=== PATIENT | female | born 1940 | race Caucasian/White ===

== ENCOUNTER 2017-01-29 05:47 | Inpatient (IN) | payer MEDICARE, OTHER ==
[2017-01-20 13:00] LABS: HEMATOCRIT 40.1 % (36.0-48.0); HEMOGLOBIN 13.4 g/dL (12.0-16.0)
[2017-01-20 13:03] LABS: ASCORBIC ACID (UR NOT ORDER) NEG (NEG); BILIRUBIN, URINE NEGATIVE (NEG); KETONE, URINE NEGATIVE (NEG)
[2017-01-20 13:09] LABS: CALCIUM, SERUM 9.1 MG/DL (8.5-10.4); CHLORIDE, SERUM 102 MMOL/L (96-112); CO2 (CARBON DIOXIDE) 37 MMOL/L (24-34); GFR AFRICAN AMERICAN 46 ML/MIN (>=60); GFR NON AFRICAN AMERICAN 40 ML/MIN (>=60); SODIUM, SERUM 144 MMOL/L (135-148)
[2017-01-20 13:10] LABS: BUN (BLOOD UREA NITROGEN) 20 MG/DL (6-23); GLUCOSE, SERUM 117 MG/DL (60-99)
--- NOTE | ~2017-01-29 | DS ---
Discharge Summary [facility] [address] [place] [place]. [address] NAME: NILS FINCH APRIL : 40 STATUS : DIS IN PAT#: [id number] AGE: 76 ADM/REG DATE : 01/29/17 MR#: [id number] REPORT SERV DATE: 02/08/17 DICTATED BY: ANNA MURPHY DATE: 02/08/17 REPORT STATUS : Draft TRANSCRIBED BY: MODGlen DATE: 02/08/17 Data Collection from hospitalization DISCHARGE DIAGNOSES: 1. Right renal mass. 2. Hypertension. 3. Cardiomyopathy. 4. Chronic systolic heart failure. 5. History of atrial flutter. 6. Hyperlipidemia. 7. Hypothyroidism. 8. Murmur. 9. Orthostatic hypotension. 10.History of premature atrial contractions. 11.Rheumatoid arthritis. 12.Valvular heart disease. CONSULTATIONS: None. PROCEDURES PERFORMED: Right robotic-assisted laparoscopic partial nephrectomy and intraoperative ultrasound of the right kidney on 01/29/2017. PATHOLOGY: Kidney, base of tumor biopsy - no tumor seen. Right kidney partial nephrectomy - benign cortical cyst (1.2 cm), no carcinoma seen. MEDICATIONS: Aspirin 81 mg every morning, Caltrate 600 mg every morning, Coreg 25 mg twice a day, vitamin B12 1000 mcg sublingually daily, Colace 100 mg twice a day, Lasix 40 mg twice a day, levothyroxine 50 mcg every morning, Cozaar 50 mg every morning, Mag-Ox 400 mg twice a day, Nitrostat 0.4 mg sublingually as needed, Protonix 40 mg twice a day, potassium chloride SR 20 mEq twice a day, prednisone 2.5 mg every morning, and Ultram 50 mg twice a day as needed. CONDITION AT DISCHARGE: Stable. DISPOSITION: The patient was discharged home on a soft diet with activities as instructed. She would follow up with me on 02/15/2017. HOSPITAL COURSE: This is a 76-year-old female who has a 1.5 cm right upper pole renal mass. She was given options including surveillance, ablation, and partial nephrectomy. She has a history of a partial nephrectomy on the left side. Treatment options were discussed and it was elected to proceed with surgical intervention. She was admitted to the hospital at this time for further evaluation and treatment. Upon admission, she was taken to the operating room where she underwent the above-mentioned procedure. She tolerated this well, and there were no complications. The following day, she was in no acute distress. Her abdomen was soft. We advanced her diet. She was encouraged to ambulate. The Thornton catheter was going to be removed. On 01/31/2017, she did complain of having a cough. Her T-max was 102.6. Discharge planning was performed. On Discharge Summary [address] [place]. [address] NAME: NILS FINCH APRIL : 40 STATUS : DIS IN PAT#: [id number] AGE: 76 ADM/REG DATE : 01/29/17 MR#: [id number] REPORT SERV DATE: 02/08/17 DICTATED BY: ANNA MURPHY DATE: 02/08/17 REPORT STATUS : Draft TRANSCRIBED BY: KHUSHI DATE: 02/08/17 02/01/2017, she continued to do well. Her abdomen remained soft. Cultures were negative. She did have a bowel movement. Discharge instructions were given. Due to her improved and stable condition, she was discharged home with the above-stated instructions. Information collected by: Stefany Cummings I submit the above information as my discharge summary. RJ/KHUSHI Anna Murphy MD / [id number] CC: MD Barak Hernandez M.D.
--- NOTE | ~2017-01-29 | OP ---
Record Of Operation [facility] [address] [place] [place]. [address] NAME: NILS RAI APRIL : 40 STATUS : ADM IN PAT#: [id number] AGE: 76 ADM/REG DATE : 01/29/17 MR#: [id number] REPORT SERV DATE: 01/30/17 DICTATED BY: ANNA MURPHY DATE: 01/30/17 REPORT STATUS : Draft TRANSCRIBED BY: MODL DATE: 01/30/17 DATE OF PROCEDURE: 01/29/2017 SURGEON: Anna Murphy MD. TITLE OF OPERATION: 1. Right robotic-assisted laparoscopic partial nephrectomy. 2. Intraoperative ultrasound of right kidney. PREOPERATIVE DIAGNOSIS: Right renal mass. POSTOPERATIVE DIAGNOSIS: Right renal mass. INDICATIONS: Ms. Rai is a 76-year-old female, with a 1.5 cm right upper pole renal mass. She was given options including surveillance, ablation, and partial nephrectomy. She has a history of a partial nephrectomy on the left side. She is here for right partial nephrectomy. ANESTHESIA: General. COMPLICATIONS: None. IMPLANTS: A 16-[place] Thornton catheter. SPECIMEN: Right renal mass. NARRATIVE: The patient was brought to the operating room, identified by her wristband. General anesthesia was induced and Ancef was given for preoperative antibiotics. She was placed in the modified left flank position and prepped and draped in sterile fashion. She was secured to the bed with pads and tape. Before being prepped and draped, a 16-[place] Thornton catheter was placed into her bladder. The balloon was inflated with 10 mL of sterile water. Her abdomen was entered with a 5 mm port under direct vision. There was no significant adhesions given her prior surgeries. Standard X-Y port placement was performed with four 8 mm ports on the right side of the body. A 5 mm port was placed in a subxiphoid position for liver retractor. A 12 mm port was placed in the upper midline for a second multimedia production assistant port. A locking grasper was placed through the 5 mm port and the liver was retracted cephalad. The robot was docked. The operation was begun by dropping the colon along the white line of Toldt exposing retroperitoneum. This was dropped medially to expose the duodenal. The duodenum was sharply Kocherized, the IVC was identified. The gonadal vein was identified and reflected onto the IVC. The ureter was lifted up off the psoas muscle as was the lower pole of the kidney. Care was taken to reflect the psoas fascia inferiorly onto the psoas muscle. The hilum was then approached, and all fibrofatty tissue was dissected free, and taken with cautery. There was single renal artery and vein. However, the artery branched behind the IVC and I could not clamp the artery at its base. Therefore, the two main branches were identified, one beneath, and one above the renal vein. The kidney was then dropped back to its normal position. The kidney was defatted. The Record Of Operation [facility] [address] [place]. [address] NAME: NILS RAI APRIL : 40 STATUS : ADM IN PAT#: [id number] AGE: 76 ADM/REG DATE : 01/29/17 MR#: [id number] REPORT SERV DATE: 01/30/17 DICTATED BY: ANNA MURPHY DATE: 01/30/17 REPORT STATUS : Draft TRANSCRIBED BY: KHUSHI DATE: 01/30/17 tumor was identified in the upper pole of the kidney. It was cystic in nature. Intraoperative ultrasound was performed of the right kidney. The tumor was precisely identified using the ultrasound. Images were taken and placed in the chart. Next, the renal artery was clamped with a bulldog, one clamp was placed on the artery beneath the vein, and one was placed above the vein to ensure adequate ischemia. 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 It was placed into an EndoCatch bag. The base of the tumor was oversewn with a 3-0 V-Loc suture. A single 2-0 Vicryl suture was placed to close renorrhaphy, a sliding Weck technique was used. The bulldog clamps were then removed. There was no ongoing bleeding. Ischemic time was less than 10 minutes. The tumor in the bag were then removed. The bulldog clamps were removed. All sutures were sequentially removed. There was still no ongoing bleeding. A Surgicel dressing was placed over the renorrhaphy. The fat was reapproximated over the kidney. The robot was then removed. No drain was left. The fascia from the multimedia production assistant port was closed with a 0 Vicryl suture using Tomer-Russell device. The wounds were irrigated clear. Skin was closed with 4-0 Monocryl. Dermabond dressing was placed. The patient was awoken from anesthesia and transferred to recovery room in stable condition. There were no complications. SILVIA/KHUSHI Anna Murphy MD / [id number] CC: MD Barak Hernandez M.D.
[~2017-01-29 05:47] MED LIST: ASAB PO; CALTRAT600 PO; CHERATUSSIN OR; CHOLESTYRAM4 G1 OR; COREG12 PO; COREG25 PO; COREG3 PO; COZ50 PO; DARVN100 PO; DCN100 PO; DIOVAN40 MG PO; FISH-EPA1000 MG PO; HALF81 PO; HCTZ25B PO; HYDROCHLOROT25 MG PO; KDUR10 PO; KDUR20 PO; KLOR-CON M2020 MEQ PO; L40 PO; LEVAQUIN5T PO; LEVOTHYROXIN50 MCG PO; MAGOX4 PO; MEDROLPAK4 PO; MELA3 PO; MICRO-K10 MEQ PO; Multiple Vit Tab PO; NITROSTAT0.4 MG SL; NORV25 PO; OS500+D PO; P5 PO; PCET PO; PLAQ200B PO; PREDNISONE2.5 MG PO; PRILO PO; PROTONIX PO; RECLAST IV; REGLAN 10 MG OR; TAMBO50 PO; TAMBOCOR PO; THERAPEUTIC PO; ULTRAM50 PO; VITAMIN B-121000 MC1 SL; ZOCOR10 PO; ZOCOR20 PO; [UNRECOGNIZED DRUG - OTHER] OR
[2017-01-29 10:41] LABS: BASOPHILS 0 %; EOSINOPHILS 0.4 %; EOSINOPHILS ABSOLUTE 0.01 10/3/uL (0.0-0.53); HEMATOCRIT 36.4 % (36.0-48.0); HEMOGLOBIN 12.4 g/dL (12.0-16.0); LYMPHOCYTES 19.1 %; LYMPHOCYTES ABSOLUTE 0.49 10/3/uL (0.67-4.30); MEAN CORPUS HGB CONC 34.1 g/dL (32.0-36.0); MEAN CORPUSCULAR HEMOGLOB 29.7 pg (26.0-34.0); MEAN CORPUSCULAR VOLUME 87.1 fL (80-100); MEAN PLATELET VOLUME 11.4 fL (9.2-13.0); MONOCYTES 1.6 %; MONOCYTES ABSOLUTE 0.04 10/3/uL (0.21-1.20); NEUTROPHILS 78.9 %; NEUTROPHILS ABSOLUTE 2.02 10/3/uL (2.02-8.40); PLATELET COUNT 91 10/3/uL (150-400); RBC DISTRIBUTION WIDTH 13.3 % (12.0-16.0); RED CELL COUNT 4.18 10/6/uL (4.0-5.6); WHITE BLOOD CELLS 2.6 10/3/uL (4.5-10.5)
[2017-01-29 10:44] LABS: MANUAL DIFF NO %
[2017-01-29 10:50] LABS: CALCIUM, SERUM 8.7 MG/DL (8.5-10.4); CHLORIDE, SERUM 103 MMOL/L (96-112); GFR AFRICAN AMERICAN 72 ML/MIN (>=60); GFR NON AFRICAN AMERICAN 62 ML/MIN (>=60); GLUCOSE, SERUM 125 MG/DL (60-99); SODIUM, SERUM 140 MMOL/L (135-148)
[2017-01-29 10:51] LABS: BUN (BLOOD UREA NITROGEN) 13 MG/DL (6-23); CO2 (CARBON DIOXIDE) 29 MMOL/L (24-34)
[2017-01-30 07:28] LABS: BASOPHILS 0 %; EOSINOPHILS 0.1 %; EOSINOPHILS ABSOLUTE 0.01 10/3/uL (0.0-0.53); HEMOGLOBIN 10.8 g/dL (12.0-16.0); IMMATURE GRANULOCYTES 0.1 %; IMMATURE GRANULOCYTES ABSOLUTE 0.01 10/3/uL (0.0-0.11); LYMPHOCYTES 6.5 %; LYMPHOCYTES ABSOLUTE 0.45 10/3/uL (0.67-4.30); MEAN CORPUS HGB CONC 33.5 g/dL (32.0-36.0); MEAN CORPUSCULAR HEMOGLOB 29.8 pg (26.0-34.0); MEAN PLATELET VOLUME 11.4 fL (9.2-13.0); MONOCYTES ABSOLUTE 0.69 10/3/uL (0.21-1.20); NEUTROPHILS 83.3 %; NEUTROPHILS ABSOLUTE 5.77 10/3/uL (2.02-8.40); PLATELET COUNT 88 10/3/uL (150-400); RBC DISTRIBUTION WIDTH 13.6 % (12.0-16.0); RED CELL COUNT 3.62 10/6/uL (4.0-5.6)
[2017-01-30 07:29] LABS: HEMATOCRIT 32.2 % (36.0-48.0); MANUAL DIFF NO %; WHITE BLOOD CELLS 6.9 10/3/uL (4.5-10.5)
[2017-01-30 07:40] LABS: CALCIUM, SERUM 7.9 MG/DL (8.5-10.4); CHLORIDE, SERUM 102 MMOL/L (96-112); CO2 (CARBON DIOXIDE) 29 MMOL/L (24-34); CREATININE 0.94 MG/DL (0.55-1.02); GFR AFRICAN AMERICAN 68 ML/MIN (>=60); GFR NON AFRICAN AMERICAN 59 ML/MIN (>=60); GLUCOSE, SERUM 120 MG/DL (60-99); POTASSIUM, SERUM 3.9 MMOL/L (3.5-5.3); SODIUM, SERUM 141 MMOL/L (135-148)
[2017-01-30 07:41] LABS: BUN (BLOOD UREA NITROGEN) 9 MG/DL (6-23)
[2017-01-31 06:14] LABS: ASCORBIC ACID (UR NOT ORDER) NEG (NEG); BILIRUBIN, URINE NEGATIVE (NEG); KETONE, URINE NEGATIVE (NEG); LEUKOCYTE ESTERASE(NOT OR NEG (NEG); WBC (NOT ORDERED) (RFLEX) < 1 (0-5)
[2017-01-31 07:39] LABS: BUN (BLOOD UREA NITROGEN) 10 MG/DL (6-23); CHLORIDE, SERUM 105 MMOL/L (96-112); CO2 (CARBON DIOXIDE) 29 MMOL/L (24-34); CREATININE 1.05 MG/DL (0.55-1.02); GFR AFRICAN AMERICAN 60 ML/MIN (>=60); GFR NON AFRICAN AMERICAN 52 ML/MIN (>=60); GLUCOSE, SERUM 106 MG/DL (60-99); POTASSIUM, SERUM 4.1 MMOL/L (3.5-5.3); SODIUM, SERUM 140 MMOL/L (135-148)
[2017-01-31 11:38] LABS: BASOPHILS 0.1 %; BASOPHILS ABSOLUTE 0.01 10/3/uL (0.0-0.16); EOSINOPHILS ABSOLUTE 0.07 10/3/uL (0.0-0.53); HEMATOCRIT 34.2 % (36.0-48.0); HEMOGLOBIN 11.4 g/dL (12.0-16.0); IMMATURE GRANULOCYTES 0.3 %; IMMATURE GRANULOCYTES ABSOLUTE 0.02 10/3/uL (0.0-0.11); LYMPHOCYTES 10.5 %; LYMPHOCYTES ABSOLUTE 0.71 10/3/uL (0.67-4.30); MEAN CORPUS HGB CONC 33.3 g/dL (32.0-36.0); MEAN PLATELET VOLUME 11.5 fL (9.2-13.0); MONOCYTES 10.6 %; MONOCYTES ABSOLUTE 0.72 10/3/uL (0.21-1.20); NEUTROPHILS 77.5 %; NEUTROPHILS ABSOLUTE 5.26 10/3/uL (2.02-8.40); PLATELET COUNT 103 10/3/uL (150-400); RBC DISTRIBUTION WIDTH 13.8 % (12.0-16.0); WHITE BLOOD CELLS 6.8 10/3/uL (4.5-10.5)
[2017-01-31 11:39] LABS: MANUAL DIFF NO %
[2017-02-01] MEDS ORDERED: DSS PO (11:46)
== END 2017-02-01 12:36 | disposition home or self-care (01) | DRG 660 ==
LOC: SDC/OF 05:47 → PACU 10:10 → 4SO 12:51
PROVIDERS: Urology
PROC: 0TB04ZZ Excision of Right Kidney, Percutaneous Endoscopic Approach (ICD-10-PCS; principal; 2017-01-29 06:30)
PROC: BT41ZZZ Ultrasonography of Right Kidney (ICD-10-PCS; principal; 2017-01-29 06:30)
PROC: 8E0W4CZ Robotic Assisted Procedure of Trunk Region, Percutaneous Endoscopic Approach (ICD-10-PCS; principal; 2017-01-29 06:30)
DX: N28.1 Cyst of kidney, acquired (principal); I42.9 Cardiomyopathy, unspecified; I50.22 Chronic systolic (congestive) heart failure; I48.92 Unspecified atrial flutter; N18.9 Chronic kidney disease, unspecified; E03.9 Hypothyroidism, unspecified; I95.1 Orthostatic hypotension; M06.9 Rheumatoid arthritis, unspecified; I35.1 Nonrheumatic aortic (valve) insufficiency; Z90.5 Acquired absence of kidney; Z79.01 Long term (current) use of anticoagulants; Z95.810 Presence of automatic (implantable) cardiac defibrillator; Z98.890 Other specified postprocedural states
CPT/HCPCS: 36415; 71020; 80048; 81001; 85014; 85018; 85025; 86850; 86900; 86901; 87040; 87070; 87086; 87205; 88305; 88307; 88331; 93005; 94002; 94770; A9270-GY; J0690; J1170; J2150; J2250; J2270; J2370; J2405; J2710; J2795; J3010; J3370; P9045